=== PATIENT | female | born 1995 | race African-American/Black ===

== ENCOUNTER 2016-09-05 11:50 | Emergency (ER) | payer SELFPAY ==
[~2016-09-05] VITALS: Ht 167.6 cm; Wt 66.0 kg
[2016-09-05 11:52] VITALS: BP 133/87; PULSE 85; RESP 12; TEMP 98.6; O2SAT 100
[2016-09-05 12:44] LABS: BLOOD, URINE NEG (NEG); COMMENT (UR) CULT NOT INDICATED; CULTURE IF INDICATED CULT NOT INDICATED; GLUCOSE,URINE NEG (NEG); KETONE, URINE 10 mg/dL (NEG); MUCUS URINE MANY /lpf (OCC); NITRITE,URINE NEG (NEG); SQUAMOUS EPITHELIAL CELL URINE 7 /hpf (0-5); URINE COLOR YELLOW (YELLW/STRAW)
== END 2016-09-05 14:45 | disposition left against medical advice (07) ==
LOC: NED 11:50
DX: R10.9 Unspecified abdominal pain (principal)
CPT/HCPCS: 81001; 84703; 99281

== ENCOUNTER 2016-10-21 07:10 | Emergency (ER) | payer SELFPAY ==
[~2016-10-21] VITALS: Ht 170.2 cm; Wt 65.0 kg
[2016-10-21 07:19] VITALS: BP 145/95; PULSE 102; RESP 14; TEMP 98; O2SAT 99
[2016-10-21] MEDS ORDERED: SODIUM CHLOR 0.9% 1000 ML INJ 1,000 ML IV ONE (08:15)
[2016-10-21] MEDS ORDERED: ONDANSETRON HCL 4 MG/2 ML VIAL IV PUSH ONE (08:15)
--- NOTE | 2016-10-21 08:17 | PD ---
HPI Chief Complaint: Alcohol/Drug Intoxication Time Seen by Provider: 08:08 Travel History International Travel<30 days: No Contact w/Intl Traveler<30days: No Traveled to known affect area: No History of Present Illness HPI This is a 21-year-old female who presents today with complaints of nausea vomiting after drinking a rum drink last night at 8 PM. The patient states she had a 151 rum drink and shortly thereafter started expansion nausea vomiting. Patient states this happened once before in June. When asked if she thought someone could have slipped something in her drink, she states no because she made to drink herself at her past. She has no other complaints. PFSH Past Medical History Hx Anticoagulant Therapy: No Asthma: Yes Cardiovascular Problems: No Chemotherapy: No Cerebrovascular Accident: No Diabetes: No Diminished Hearing: No Respiratory: No ?: Unknown : 0 Para: 0 Miscarriage: 0 : 0 Past Surgical History Hysterectomy: No Social History Alcohol Use: Yes (SOCIALLY) Tobacco Use: Yes (SOCIAL) Substance Use: No (DENIES) Allergies-Medications (Allergen,Severity, Reaction): Coded Allergies: Penicillin (Verified Allergy, Severe, 10/21/16) CHILD BAD REACTION Reported Meds & Prescriptions Reported Meds & Active Scripts Active No Active Prescriptions or Reported Medications Review of Systems Except as stated in HPI: all other systems reviewed are Neg General / Constitutional: No: Fever, Chills HENT: No: Headaches, Lightheadedness Cardiovascular: No: Chest Pain or Discomfort, Palpitations Respiratory: No: Cough, Shortness of Breath Gastrointestinal: Positive: Nausea, Vomiting, No: Abdominal Pain Musculoskeletal: No: Weakness, Pain Neurologic: No: Weakness, Dizziness, Headache Physical Exam Narrative GENERAL: Well-nourished, well-developed patient. SKIN: Warm and dry. HEAD: Normocephalic/atraumatic. EYES: No scleral icterus. No injection or drainage. NECK: Supple, trachea midline. CARDIOVASCULAR: Regular rate and rhythm without murmurs, gallops, or rubs. RESPIRATORY: Breath sounds equal bilaterally. No accessory muscle use. GASTROINTESTINAL: Abdomen soft, non-tender, nondistended. MUSCULOSKELETAL: No cyanosis, or edema. NEUROLOGICAL: Awake and alert. Cranial nerves II through XII intact. Motor grossly within normal limits. Five out of 5 muscle strength in all muscle groups. Normal speech. Data Data Last Documented VS Vital Signs Date Time Temp Pulse Resp B/P Pulse Ox O2 Delivery O2 Flow Rate FiO2 10/21/16 07:19 98.0 102 14 145/95 99 Orders Basic Metabolic Panel (Bmp) (10/21/16 08:11) Drug Screen, Random Urine (10/21/16 08:11) Alcohol (Ethanol) (10/21/16 08:11) Sodium Chlor 0.9% 1000 Ml Inj (Ns 1000 M (10/21/16 08:15) Ondansetron Inj (Zofran Inj) (10/21/16 08:15) Potassium Chloride Eff (K-Lyte Cl Eff) (10/21/16 11:00) Labs Laboratory Tests Test 10/21/16 08:10 Sodium Level 142 MEQ/L Potassium Level 3.2 MEQ/L Chloride Level 107 MEQ/L Carbon Dioxide Level 23.8 MEQ/L Anion Gap 11 MEQ/L Blood Urea Nitrogen 12 MG/DL Creatinine 0.84 MG/DL Estimat Glomerular Filtration 102 ML/MIN Rate Random Glucose 93 MG/DL Calcium Level 9.2 MG/DL Ethyl Alcohol Level 50 MG/DL MDM Medical Decision Making Medical Screen Exam Complete: Yes Emergency Medical Condition: Yes Differential Diagnosis Alcohol intoxication versus gastroenteritis versus adverse reaction to alcohol Narrative Course 21-year-old female who presents with complaints of nausea vomiting after ingesting alcohol last night at 8 PM. The patient states she's had this previously. She reports only having 1 drink. The patient's alcohol level was 0.04. Her potassium level was 3.2. She's been given 25 mEq of potassium effervescent times one dose. She is instructed to avoid alcohol. Diagnosis Primary Impression: Nausea and vomiting Additional Impressions: adverse reaction to alcohol use mild hypokalemia Additional Instructions: Avoid drinking alcohol. Increase her potassium rich foods Scripts No Active Prescriptions or Reported Meds Disposition: 01 DISCHARGE HOME Condition: Stable Dionisio Guthrie MD Oct 21, 2016 08:17
[2016-10-21 08:48] LABS: BICARBONATE 23.8 MEQ/L (21.0-32.0); POTASSIUM 3.2 MEQ/L (3.5-5.1)
[2016-10-21 10:46] LABS: AMPHETAMINE, URINE NEG (NEG); BARBITURATES, URINE NEG (NEG); COCAINE, URINE NEG (NEG)
[2016-10-21] MEDS ORDERED: POTASSIUM CHLORIDE 25 MEQ EFFERVESCENT TAB PO ONE (11:00)
== END 2016-10-21 12:46 | disposition home or self-care (01) ==
LOC: NEPC 07:10
DX: R11.2 Nausea with vomiting, unspecified (principal); E87.6 Hypokalemia
CPT/HCPCS: 80048; 80307; 96361; 96374; 99284; J2405; J7030

== ENCOUNTER 2016-11-29 15:57 | Emergency (ER) | payer SELFPAY ==
[~2016-11-29] VITALS: Ht 167.6 cm; Wt 63.0 kg
[2016-11-29 15:58] VITALS: BP 141/93; PULSE 73; RESP 14; TEMP 98.7; O2SAT 100
[2016-11-29] MEDS ORDERED: SODIUM CHLORIDE 0.9% FLUSH 10 ML FLUSH IVF PRN (18:30)
[2016-11-29] MEDS ORDERED: METOCLOPRAMIDE HCL 10 MG/2 ML VIAL IV PUSH ONE (18:45)
[2016-11-29] MEDS ORDERED: diphenhydrAMINE HCL 50 MG/ML VIAL IV PUSH ONE (18:45)
[2016-11-29] MEDS ORDERED: DEXAMETHASONE SOD PHOS 20 MG/5 ML VIAL IV PUSH ONE (18:45)
[2016-11-29] MEDS ORDERED: SODIUM CHLOR 0.9% 1000 ML INJ 1,000 ML IV ONE ×2 (18:45)
--- NOTE | 2016-11-29 18:47 | PD ---
HPI Chief Complaint: Headache Time Seen by Provider: 18:20 Travel History International Travel<30 days: No Contact w/Intl Traveler<30days: No Traveled to known affect area: No History of Present Illness HPI Patient is a 21-year-old female who presents to emergency room with complaints of headache. She reports that she has had history of migraines in the past, patient reports that for the past 5 days, she has had increased frontal headache. Patient reports that she has associated nausea and vomiting 1 as well as photophobia with her symptoms. Patient reports that she thinks that her migraine is stress-induced as she is currently in school right now. Patient reports that she has not tried taking any medications to help with her symptoms. Reports that her symptoms are baseline, not the worst headache of her life, denies thunderclap headache. Patient denies any fevers or chills, denies any other complaints. PFSH Past Medical History Hx Anticoagulant Therapy: No Asthma: Yes Anxiety: Yes Cardiovascular Problems: No Chemotherapy: No Cerebrovascular Accident: No Diabetes: No Diminished Hearing: No Headaches: Yes Respiratory: No Migraines: Yes Influenza Vaccination: No ?: Not LMP: 10/2016 : 0 Para: 0 Miscarriage: 0 : 0 Past Surgical History Surgical History: No Previous Surgery Hysterectomy: No Social History Alcohol Use: Yes (SOCIALLY) Tobacco Use: No Substance Use: Yes (MARIJUANA OCCASIONALLY) Allergies-Medications (Allergen,Severity, Reaction): Coded Allergies: Penicillin (Verified Allergy, Severe, 11/29/16) CHILD BAD REACTION Reported Meds & Prescriptions Reported Meds & Active Scripts Active No Active Prescriptions or Reported Medications Review of Systems General / Constitutional: No: Fever Eyes: No: Visual changes HENT: No: Headaches Cardiovascular: No: Chest Pain or Discomfort Respiratory: No: Shortness of Breath Gastrointestinal: Positive: Nausea, Vomiting, No: Abdominal Pain Genitourinary: No: Dysuria Musculoskeletal: No: Pain Skin: No Rash Neurologic: Positive: Headache, No: Weakness Psychiatric: No: Depression Endocrine: No: Polydipsia Hematologic/Lymphatic: No: Easy Bruising Physical Exam Narrative GENERAL: No acute distress, nontoxic SKIN: Focused skin assessment warm/dry. HEAD: Atraumatic. Normocephalic. EYES: Pupils equal and round. No scleral icterus. No injection or drainage. ENT: No nasal bleeding or discharge. Mucous membranes pink and moist. NECK: Trachea midline. No JVD. CARDIOVASCULAR: Regular rate and rhythm. No murmur appreciated. RESPIRATORY: No accessory muscle use. Clear to auscultation. Breath sounds equal bilaterally. GASTROINTESTINAL: Abdomen soft, non-tender, nondistended. Hepatic and splenic margins not palpable. MUSCULOSKELETAL: No obvious deformities. No clubbing. No cyanosis. No edema. NEUROLOGICAL: Awake and alert. No obvious cranial nerve deficits. Motor grossly within normal limits. Normal speech. PSYCHIATRIC: Appropriate mood and affect; insight and judgment normal. Data Data Last Documented VS Vital Signs Date Time Temp Pulse Resp B/P Pulse Ox O2 Delivery O2 Flow Rate FiO2 11/29/16 15:58 98.7 73 14 141/93 100 Orders Complete Blood Count With Diff (11/29/16 18:22) Comprehensive Metabolic Panel (11/29/16 18:22) Prothrombin Time / Inr (Pt) (11/29/16 18:22) Act Partial Throm Time (Ptt) (11/29/16 18:22) Ecg Monitoring (11/29/16 18:22) Iv Access Insert/Monitor (11/29/16 18:22) Oximetry (11/29/16 18:22) Sodium Chloride 0.9% Flush (Ns Flush) (11/29/16 18:30) Ed Urine Pregnancytest Poc (11/29/16 18:22) Ct Brain W/O Iv Contrast(Rout) (11/29/16 18:34) Dexamethasone Inj (Decadron Inj) (11/29/16 18:45) Metoclopramide Inj (Reglan Inj) (11/29/16 18:45) Diphenhydramine Inj (Benadryl Inj) (11/29/16 18:45) Sodium Chlor 0.9% 1000 Ml Inj (Ns 1000 M (11/29/16 18:45) Sodium Chlor 0.9% 1000 Ml Inj (Ns 1000 M (11/29/16 18:45) Potassium Chloride (Kcl) (11/29/16 19:45) Labs Laboratory Tests Test 11/29/16 18:35 White Blood Count 10.5 TH/MM3 Red Blood Count 4.42 MIL/MM3 Hemoglobin 12.6 GM/DL Hematocrit 38.8 % Mean Corpuscular Volume 87.7 FL Mean Corpuscular Hemoglobin 28.5 PG Mean Corpuscular Hemoglobin 32.5 % Concent Red Cell Distribution Width 14.0 % Platelet Count 219 TH/MM3 Mean Platelet Volume 9.5 FL Neutrophils (%) (Auto) 78.0 % Lymphocytes (%) (Auto) 12.9 % Monocytes (%) (Auto) 8.4 % Eosinophils (%) (Auto) 0.4 % Basophils (%) (Auto) 0.3 % Neutrophils # (Auto) 8.2 TH/MM3 Lymphocytes # (Auto) 1.4 TH/MM3 Monocytes # (Auto) 0.9 TH/MM3 Eosinophils # (Auto) 0.0 TH/MM3 Basophils # (Auto) 0.0 TH/MM3 CBC Comment DIFF FINAL Differential Comment Prothrombin Time 11.4 SEC Prothromb Time International 1.0 RATIO Ratio Activated Partial 27.5 SEC Thromboplast Time Sodium Level 140 MEQ/L Potassium Level 3.4 MEQ/L Chloride Level 105 MEQ/L Carbon Dioxide Level 27.6 MEQ/L Anion Gap 7 MEQ/L Blood Urea Nitrogen 10 MG/DL Creatinine 0.90 MG/DL Estimat Glomerular Filtration 94 ML/MIN Rate Random Glucose 96 MG/DL Calcium Level 8.6 MG/DL Total Bilirubin 1.1 MG/DL Aspartate Amino Transf 22 U/L (AST/SGOT) Alanine Aminotransferase 17 U/L (ALT/SGPT) Alkaline Phosphatase 63 U/L Total Protein 7.5 GM/DL Albumin 3.9 GM/DL [facility] Medical Decision Making Medical Screen Exam Complete: Yes Emergency Medical Condition: Yes Interpretation(s) Vital Signs Date Time Temp Pulse Resp B/P Pulse Ox O2 Delivery O2 Flow Rate FiO2 11/29/16 15:58 98.7 73 14 141/93 100 Differential Diagnosis Migraine headache, intracranial hemorrhage, dehydration, electrolyte abnormality Narrative Course Patient is a 21-year-old female who presents to emergency room with complaints of typical migraine headache. Reports that she has been symptomatic for the past 5 days, reports that she did have one episode of emesis with her symptoms. Patient now complaining of a frontal headache, reports that she was concerned as it has been 5 days. Patient reports that symptoms are very typical for her typical migraine headaches. Patient with no neurological deficits on exam. On exam, patient is nontoxic, patient is laughing smiling. CT of the head ordered , lab work as well as migraine cocktail ordered. Plan to monitor patient. Vital Signs Date Time Temp Pulse Resp B/P Pulse Ox O2 Delivery O2 Flow Rate FiO2 11/29/16 15:58 98.7 73 14 141/93 100 Laboratory Tests Test 11/29/16 18:35 White Blood Count 10.5 TH/MM3 (4.0-11.0) Red Blood Count 4.42 MIL/MM3 (4.00-5.30) Hemoglobin 12.6 GM/DL (11.6-15.3) Hematocrit 38.8 % (35.0-46.0) Mean Corpuscular Volume 87.7 FL (80.0-100.0) Mean Corpuscular Hemoglobin 28.5 PG (27.0-34.0) Mean Corpuscular Hemoglobin 32.5 % Concent (32.0-36.0) Red Cell Distribution Width 14.0 % (11.6-17.2) Platelet Count 219 TH/MM3 (150-450) Mean Platelet Volume 9.5 FL (7.0-11.0) Neutrophils (%) (Auto) 78.0 % (16.0-70.0) Lymphocytes (%) (Auto) 12.9 % (9.0-44.0) Monocytes (%) (Auto) 8.4 % (0.0-8.0) Eosinophils (%) (Auto) 0.4 % (0.0-4.0) Basophils (%) (Auto) 0.3 % (0.0-2.0) Neutrophils # (Auto) 8.2 TH/MM3 (1.8-7.7) Lymphocytes # (Auto) 1.4 TH/MM3 (1.0-4.8) Monocytes # (Auto) 0.9 TH/MM3 (0-0.9) Eosinophils # (Auto) 0.0 TH/MM3 (0-0.4) Basophils # (Auto) 0.0 TH/MM3 (0-0.2) CBC Comment DIFF FINAL Differential Comment Prothrombin Time 11.4 SEC (9.8-11.6) Prothromb Time International 1.0 RATIO Ratio Activated Partial 27.5 SEC Thromboplast Time (24.3-30.1) Sodium Level 140 MEQ/L (136-145) Potassium Level 3.4 MEQ/L (3.5-5.1) Chloride Level 105 MEQ/L (98-107) Carbon Dioxide Level 27.6 MEQ/L (21.0-32.0) Anion Gap 7 MEQ/L (5-15) Blood Urea Nitrogen 10 MG/DL (7-18) Creatinine 0.90 MG/DL (0.50-1.00) Estimat Glomerular Filtration 94 ML/MIN (>89) Rate Random Glucose 96 MG/DL (74-106) Calcium Level 8.6 MG/DL (8.5-10.1) Total Bilirubin 1.1 MG/DL (0.2-1.0) Aspartate Amino Transf 22 U/L (15-37) (AST/SGOT) Alanine Aminotransferase 17 U/L (10-53) (ALT/SGPT) Alkaline Phosphatase 63 U/L (45-117) Total Protein 7.5 GM/DL (6.4-8.2) Albumin 3.9 GM/DL (3.4-5.0) Last Impressions Head CT 11/29/16 7564 Signed Impressions: Service Date/Time: Tuesday, November 29, 2016 19:01 - CONCLUSION: Unremarkable noncontrast CT. Eduardo Mike MD Patient re-evaluated, patient reports that she is feeling much better at this time and has complete resolution of headache at this time. I reviewed all labs and studies with patient in detail, patient will return to ER as needed. CN 2- 12 grossly intact with no neurological deficits. Patient safe to be discharged to home with outpatient referrals Diagnosis Primary Impression: Cephalgia Qualified Code: R51 - Acute nonintractable headache, unspecified headache type Patient Instructions: General Instructions Departure Forms: Tests/Procedures, Work Release Enter return to work date: November 30, 2016 Additional Instructions: Please return to ER as needed Please follow up with your primary care doctor Return to ER if symptoms worsen or progress Scripts No Active Prescriptions or Reported Meds Disposition: 01 DISCHARGE HOME Condition: Stable Marie Cortes DO November 29, 2016 18:47
[2016-11-29 19:02] LABS: APTT (PATIENT) 27.5 SEC (24.3-30.1); PROTHROMBIN TIME - PATIENT 11.4 SEC (9.8-11.6)
[2016-11-29 19:10] LABS: ANION GAP 7 MEQ/L (5-15); BICARBONATE 27.6 MEQ/L (21.0-32.0); BLOOD UREA NITROGEN 10 MG/DL (7-18); CHLORIDE 105 MEQ/L (98-107); GLOMERULAR FILTRATION RATE 94 ML/MIN (>89); POTASSIUM 3.4 MEQ/L (3.5-5.1); SODIUM (NA) 140 MEQ/L (136-145)
[2016-11-29 19:16] LABS: AUTOMATED NEUTROPHIL # 8.2 TH/MM3 (1.8-7.7); BASOPHIL % 0.3 % (0.0-2.0); EOSINOPHIL % 0.4 % (0.0-4.0); HEMATOCRIT 38.8 % (35.0-46.0); HEMO FLAGS DIFF FINAL; LYMPH % 12.9 % (9.0-44.0); LYMPHOCYTE # 1.4 TH/MM3 (1.0-4.8); MEAN CELL VOLUME 87.7 FL (80.0-100.0); MEAN CORPUSCULAR HEMOGLOBIN 28.5 PG (27.0-34.0); MEAN CORPUSCULAR HGB CONC 32.5 % (32.0-36.0); MONO % 8.4 % (0.0-8.0); PLATELET COUNT 219 TH/MM3 (150-450); RED BLOOD COUNT 4.42 MIL/MM3 (4.00-5.30); WHITE BLOOD COUNT 10.5 TH/MM3 (4.0-11.0)
[2016-11-29 19:19] LABS: ALKALINE PHOSPHATASE 63 U/L (45-117); ALT (GPT) 17 U/L (10-53); AST (GOT) 22 U/L (15-37); TOTAL BILIRUBIN ADULT 1.1 MG/DL (0.2-1.0)
--- NOTE | 2016-11-29 19:20 | RADRPT ---
EXAM DATE/TIME: 11/29/2016 19:01 [facility] COMPARISON: No previous studies available for comparison. INDICATIONS : Headaches. RADIATION DOSE: 53.16 CTDIvol (mGy) MEDICAL HISTORY : Hypertension. Migraines SURGICAL HISTORY : None. ENCOUNTER: Initial ACUITY: 1 day PAIN SCALE: 7/10 LOCATION: Bilateral cranial TECHNIQUE: Multiple contiguous axial images were obtained of the head. Using automated exposure control and adj ustment of the mA and/or kV according to patient size, radiation dose was kept as low as reasonably a chievable to obtain optimal diagnostic quality images. FINDINGS: CEREBRUM: The ventricles are normal for age. No evidence of midline shift, mass lesion, hemorrhage or acute in farction. No extra-axial fluid collections are seen. POSTERIOR FOSSA: The cerebellum and brainstem are intact. The 4th ventricle is midline. The cerebellopontine angle i s unremarkable. EXTRACRANIAL: The visualized portion of the orbits is intact. SKULL: The calvaria is intact. No evidence of skull fracture. CONCLUSION: Unremarkable noncontrast CT. Eduardo Mike MD on November 29, 2016 at 19:17 Board Certified Radiologist. This report was verified electronically.
[2016-11-29] MEDS ORDERED: POTASSIUM CHLORIDE 10 MEQ CONTROLLED RELEASE TAB PO ONE (19:45)
[2016-11-29 20:00] VITALS: BP 139/86; PULSE 72; RESP 17; O2SAT 97
== END 2016-11-29 20:28 | disposition home or self-care (01) ==
LOC: NEPD 15:57
DX: R51 Headache (principal); R11.2 Nausea with vomiting, unspecified; J45.909 Unspecified asthma, uncomplicated
CPT/HCPCS: 70450; 80053; 84703; 85025; 85610; 85730; 96361; 96374; 96375; 99284; J1100; J1200; J2765; J7030